=== PATIENT | male | born 1970 | race Caucasian/White ===

== ENCOUNTER → 2018-07-07 09:03 | Outpatient (CLI) | payer OTHER, SELFPAY ==
[2018-07-07 10:06] LABS: Add Manual Diff / Slide Review NO; Basophils Percent Auto 0.6 % (0-2); Eosinophils Percent Auto 2.1 % (2-4); Hemoglobin 15.7 g/dL (13.5-17.5); Lymphocytes Percent Auto 22.8 % (25-40); Mean Corpuscular HGB Conc 34.1 % (30-36); Mean Corpuscular Hemoglobin 29.8 PG (26-34); Mean Corpuscular Volume 87.4 fL (80-100); Monocytes Percent Auto 11.5 % (3-14); Neutrophils Absolute Auto 3800 /uL (1500-7000); Platelet Count 225 X10^3/uL (150-400); Red Blood Cell Count 5.27 X10^6/uL (4.5-5.9)
[2018-07-07 10:15] LABS: BUN Creatinine Ratio 17.3 (6-22); Blood Urea Nitrogen 19 mg/dL (9-20); Calcium 9.3 mg/dL (8.4-10.2); Carbon Dioxide 28 mmol/L (22-32); Chloride 105 mmol/L (98-107); Estimated Glomerular Filt Rate > 60.0 mL/min (>60); Glucose 60 mg/dL (70-100); HEMOLYSIS < 15 (0-50); Sodium 141 mmol/L (137-145)
[2018-07-07 10:34] LABS: Hemoglobin A1C% w Est Avg Glu 5.5 % (4.0-6.0)
[2018-07-07 11:06] LABS: Appearance Urine UA SL CLOUDY; Bilirubin Urine UA NEGATIVE (NEGATIVE); Color Urine UA YELLOW; Glucose Urine UA NEGATIVE (Negative); Ketones Urine UA NEGATIVE (NEGATIVE); Leukocyte Esterase Urine UA NEGATIVE (NEGATIVE); Nitrite Urine UA NEGATIVE (Negative); Occult Blood Urine UA NEGATIVE (Negative); Protein Urine UA NEGATIVE (Negative); Specific Gravity Urine UA >=1.030 (1.000-1.035); Urobilinogen Urine UA 0.2 E.U./dL (0.2)
[2018-07-07 11:26] LABS: Bacteria Urine Moderate (10-30); Culture Indicated Urine Cult Not Indicated; Mucus Urine 2+ (Negative); RBC Urine 0-1/HPF (0-5/HPF); WBC Urine 0-1/HPF (0-5/HPF)
== END ==
PROVIDERS: Visit Provider Orthopaedic Surgery
DX: Z01.818 Encounter for other preprocedural examination (principal)
CPT/HCPCS: 36415; 80048; 81001; 83036; 85025; 93005

== ENCOUNTER 2018-07-23 10:48 | Day surgery (SDC) | payer OTHER, SELFPAY ==
[2018-07-12 14:57] VITALS: BMI 29.9
[2018-07-23] VITALS (11 sets, daily range): BP systolic 99–124; BP diastolic 67–84; PULSE 71–83; RESP 10–16; TEMP 36.2–37.2; O2SAT 92–99; BMI 29.9
--- NOTE | 2018-07-23 06:00 | DI.RAD.S_ITS ---
PROCEDURE: XR KNEE RT 1TO2V INDICATIONS: Postop left knee arthroplasty TECHNIQUE: 2 views of the knee acquired. COMPARISON: None available. FINDINGS: Bones: Patient is status post total knee joint arthroplasty. Hardware components are in expected positions. Visualized bony structures are intact. Soft tissues: Overlying postoperative changes are noted including a joint effusion, surgical drain, and soft tissue and joint space gas. IMPRESSION: 1. Expected postsurgical changes status post right knee arthroplasty. Dictated by: Bunny Pereira M.D. on 07/23/2018 at 10:59 Approved by: Bunny Pereira M.D. on 07/23/2018 at 11:00
[2018-07-23] MEDS: CELECOXIB 200 MG CAPSULE 400 MG PO (12:13)
[2018-07-23] MEDS: LACTATED RINGERS 1,000 ML 42 ML IV ×2 (12:13→14:48)
[2018-07-23] MEDS: ACETAMINOPHEN 325 MG TABLET 975 MG PO (12:15)
[2018-07-23] MEDS: PREGABALIN 75 MG CAPSULE PO (12:15)
[2018-07-23] MEDS: VANCOMYCIN 1,000 MG/200 ML FROZ.PIGGY 200 MG IV (13:45)
[2018-07-23] MEDS: CLINDAMYCIN 900 MG/50 ML PIGGYBACK 50 MG IV (14:20)
[2018-07-23] MEDS: BUPIVACAINE LIPOSOME 266 MG/20 ML VIAL INJ (14:51)
[2018-07-23] MEDS: BUPIVACAINE 0.25% W/ EPI VIAL 50 ML INJ (14:52)
[2018-07-23] MEDS: TRANEXAMIC ACID 1,000 MG VIAL 1000 MG INJ ×2 (14:52→16:10)
[2018-07-23] MEDS: POVIDONE-IODINE 15 ML, SODIUM CHLORIDE 0.9% 250 ML TOP (14:53)
--- NOTE | 2018-07-23 14:53 | PM.PROC.1 ---
Procedures Date/Time Date of procedure: 07/23/18 Time of procedure: 13:56 General Procedure description: Ultrasound guided adductor canal nerve block for post op pain control after left medial uni knee arthroplasty by Dr. Jain. Risk and benefits of procedure discussed with patient. ASA monitoring applied to patient. O2 given via nasal cannula. 2 mg Versed given for procedural sedation. Skin site was prepped with chlorhexidine and allowed to fully dry. Sterile gloves, mask, hat and probe cover were used to maintain sterility. 2% lidocaine and 30ga needle was used to make a small skin wheal at needle insertion site. Under ultrasound guidance, a 21ga 100mm Pajunk needle was directed into the adductor canal near femoral artery and saphenous nerve at the level of mid thigh. Patient reported mild parasthesias that resolved with needle repositioning. After negative aspiration, 20 mL 0.5% ropivicaine and 10mg dexamethasone were injected around saphenous nerve. Patient tolerated procedure well.
--- NOTE | 2018-07-23 14:55 | SUR.OPER ---
Supine on padded OR bed. Pillow under head, arms secured on padded armboards <90 degree abduction. Safety belt across torso. Non-operative leg secured with tape over blanket over lower leg. Operative leg secured in DeMayo/Marcio positioner. Foam padded brace at thigh of operative leg.
--- NOTE | 2018-07-23 17:04 | P.OP_ITS ---
Operative Date/Time/Diagnoses Date of procedure: 07/23/18 Time of procedure: 16:54 Pre-op diagnosis: Left knee medial femoral osteonecrosis, left knee medial compartment arthritis Post-op diagnosis: same Procedure & Clinicians Procedure: left knee diagnostic arthroscopy, left knee medial compartment arthroplasty Same procedure as scheduled: Yes Indications: This is a 47-year-old gentleman with a history of osteonecrosis of his medial femoral condyle an ongoing medial compartment pain is brought the operating room for a medial compartment arthroplasty. He has failed extensive conservative measures and is having pain and mechanical symptoms. Surgeon: Macarena Jain Market Research Coordinator: Milka Nash Anesthesia Type: General Operative Notes Findings: Significant medial compartment arthritic change, diagnostic arthroscopy did not reveal any significant pathology in the patellofemoral joint or lateral compartment. There was softening and an obvious lesion in the medial femoral condyle. Closure Type: primary Specimen(s): none sent Implants & Drains: Size F femur, size 5 tibia, +8 poly Jain and Nephew a Beverly Estimated Blood Loss (mL): 200 Tourniquet time (min): 70 Procedure in detail: The patient was seen in the pre-operative area, where the left knee was identified as the operative site and this was marked with my initials. The patient received pre-operative antibiotics, and was taken to the operating room and placed on the operative table in the supine position. After satisfactory anesthesia, a manager maritime out was performed. A lateral portal was established for diagnostic arthroscopy. The scope was inserted the patellofemoral compartment lateral compartment gutters and notch were checked. There was no significant pathology in any of the compartments except for the medial compartment where there was obvious articular cartilage loss off the medial femoral condyle and softening of the medial femoral condyle. The patient was felt to be an appropriate candidate for medial compartment arthroplasty. The left leg was encircled with a tourniquet about the proximal thigh, and the leg was prepared from the toes to the tourniquet with ChloroPrep in the usual fashion and draped through sterile drapes. The leg was elevated and exsanguinated with Eschmark bandage and the tourniquet inflated to [250] mmHg pressure. The knee was approached through an approximately 10 cm incision medial parapatellar incision and carried into the knee through a medial parapatellar arthrotomy. The osteophytes and medial meniscus were removed. Next, a small amount of the anterior tibial boss was carefully resected with a saw. The guide was placed along the medial joint line. It was meticulously adjusted to make sure there was appropriate slope that it was at the joint line and then was pinned to the tibia and the femur. The medial femoral condylar cut was made in extension. The tibial cut was made in flexion. The bone was meticulously irrigated with normal saline. In very dense bone and we actually opened the 2nd saw in order to adequately resect his bone. It was irrigated during bone resections. Small amount of additional meniscus was resected posterior capsule was checked and injected with Marcaine. The extension gap was carefully checked with an 8 mm gap inspector open die was noted that it fit well. A small number of additional osteophytes were resected. The tibia was a size [5]. It was noted that it fit without overhang. The femur was sized and it was noted to be a [F]. The appropriate cutting guide was pinned into place and carefully positioned on the femoral condyle. Drill holes were placed. The tibia was pinned into place and drill holes were made. Trial reduction with the appropriate poly showed full range of motion and good stability at 0, 45. and 90? with normal tracking of the components without edge loading. The bone was meticulously irrigated and dried. Additional Marcaine was injected. The posterior capsule was injected with 0.25% Marcaine mixed with 20 ml Exparel for post-operative pain control. The remainder of this mixture was injected into the capsule and subcutaneous tissues during cement curing. Range of motion was [0-130], with good stability throughout the range. The trials were then remove. The cement was as applied and the final prosthetics placed. Excess cement was removed during and after cement curing. A brief medial compartment Betadine soak was performed. After confirming there was no extruded cement posteriorly, the final tibial insert was placed. The knee was copiously irrigated and the tourniquet deflated. Hemostasis was obtained. The capsule was closed with interrupted Vicryl. The subcutaneous tissue was closed with barbed sutures. The skin with a running 3-0 V-Lock suture and surgical glue. The portal was closed with a single nylon stitch. An Aquacel Ag dressing was applied and the patient was taken to recovery having tolerated the procedure well. Complications: none Condition: stable Disposition: same day surgery Plan for aftercare: Weightbearing as tolerated on the left lower extremity. Cane as needed. Work on progressive range of motion outpatient physical therapy and follow up in about 10 days.
[2018-07-23] MEDS: fentaNYL 100 MCG/2 ML INJ 50 MCG IV (17:06)
[2018-07-23] MEDS: OXYCODONE/ACETAMINOPHEN 5/325 TABLET 1 TAB PO (17:44)
--- NOTE | 2018-07-23 18:30 | SUR.PHASEII ---
VERBAL ORDER RECEIVED FROM DR. WONG FOR NO XRAY OF KNEE NEEDED IN RECOVERY ROOM OR PHASE II.
== END 2018-07-23 18:15 | disposition home or self-care (01) ==
PROVIDERS: Visit Provider Orthopaedic Surgery
PROC: (CPT 27446; principal; 2018-07-23 13:45)
DX: M17.12 Unilateral primary osteoarthritis, left knee (principal); M87.9 Osteonecrosis, unspecified; G89.18 Other acute postprocedural pain; G47.30 Sleep apnea, unspecified; F31.81 Bipolar II disorder; Z72.0 Tobacco use
CPT/HCPCS: 27446; 64447; 64450; 73560; C1776; C9290; J1100; J2250; J2405; J2704; J2795; J3010; J3370

== ENCOUNTER 2019-06-07 06:01 | Day surgery (SDC) | payer OTHER, SELFPAY ==
[2019-06-03 13:44] VITALS: BMI 30.1
[2019-06-07] VITALS (9 sets, daily range): BP systolic 93–131; BP diastolic 60–84; PULSE 59–78; RESP 8–14; TEMP 35.9–36.3; O2SAT 96–98; BMI 28.8
--- NOTE | 2019-06-07 06:36 | DI.RAD.S_ITS ---
PROCEDURE: XR KNEE RT 1TO2V INDICATIONS: medial uni, right knee TECHNIQUE: 3 view(s) of the knee acquired. COMPARISON: [facility], CR, XR KNEE ARTHRITIC SERIES BI, 03/09/2019, 8:04. [facility], CR, XR KNEE RT 1TO2V, 07/23/2018, 10:28. FINDINGS: Bones: Patient is status post knee joint arthroplasty. Hardware components are in expected positions. Visualized bony structures are intact. Soft tissues: Overlying postoperative changes are noted. IMPRESSION: Expected appearance of right knee medial unicondylar arthroplasty. Dictated by: Miller Valdez [facility] Interpreted: Bindu Jacques MD on 06/07/2019 at 17:47 Approved by: Bindu Jacques M.D. on 06/07/2019 at 18:38
[2019-06-07] MEDS: LACTATED RINGERS 1,000 ML 42 ML IV ×2 (06:50→09:37)
[2019-06-07] MEDS: VANCOMYCIN 1,000 MG/200 ML PIGGYBACK 200 MG IV (06:56)
[2019-06-07] MEDS: ACETAMINOPHEN 325 MG TABLET 975 MG PO (07:02)
[2019-06-07] MEDS: PREGABALIN 75 MG CAPSULE PO (07:02)
--- NOTE | 2019-06-07 07:44 | PM.PREOP ---
Pre-operative Note Interval Note History & Physical reviewed/Exam performed by Physician: Yes Changes to H&P: No
--- NOTE | 2019-06-07 07:44 | PM.OP.1 ---
Operative Date/Time/Diagnoses Date of procedure: 06/07/19 Time of procedure: 07:57 Pre-op diagnosis: right knee oa Post-op diagnosis: same Procedure & Clinicians Procedure: Right knee medial compartment arthroplasty Same procedure as scheduled: Yes Indications: The patient has had progressively worsening right knee pain with radiographic changes consistent with arthritis. Non-operative management has failed and the patient has requested medial unicompartmental knee replacement. The risks, benefits and alternatives to surgery were discussed with the patient prior to proceeding. Risks discussed included, but were not limited to, failure to relieve pain, stiffness, infection, nerve damage, deep venous thrombosis, pulmonary embolism, stroke, coma, heart attack, permanent paralysis and , as well as the potential need for eventual revision of the prosthetic. Surgeon: Macarena Jain Physical Sciences Instructor: Ryan Levy Anesthesia Type: General Operative Notes Findings: Right knee medial compartment arthritis, fairly normal quality bone, no significant patellofemoral or lateral compartment arthritis Closure Type: primary Specimen(s): none sent Prosthetic devices, grafts, tissues, transplants, or devices: Jain and Nephew Z [employer] size F femur, size 5 tibia, +8 poly Estimated Blood Loss (mL): 250 Blood products transfused: none Tourniquet time (min): 72 Procedure in detail: The patient was seen in the pre-operative area, where the right knee was identified as the operative site and this was marked with my initials. The patient received pre-operative antibiotics, and was taken to the operating room and placed on the operative table in the supine position. After satisfactory anesthesia, a fish stringer assembler out was performed. The right leg was encircled with a tourniquet about the proximal thigh, and the leg was prepared from the toes to the tourniquet with ChloroPrep in the usual fashion and draped through sterile drapes. The leg was elevated and exsanguinated with Eschmark bandage and the tourniquet inflated to [250] mmHg pressure. The knee was approached through an approximately 10 cm incision medial parapatella incision and carried into the knee through a medial parapatellar arthrotomy. The osteophytes and medial meniscus were removed. Next, a small amount of the anterior tibial boss was carefully resected with a saw. The guide was placed along the medial joint line. It was meticulously adjusted to make sure there was appropriate slope that it was at the joint line and then was pinned to the tibia and the femur. The medial femoral condylar cut was made in extension. The tibial cut was made in flexion. The bone was meticulously irrigated with normal saline. Small amount of additional meniscus was resected posterior capsule was checked and injected with Marcaine. The extension gap was carefully checked with an 8 mm gap sap integration architect was noted that it fit well. A small number of additional osteophytes were resected. The tibia was a size 5. It was noted that it fit without overhang. The femur was sized and it was noted to be a F. The appropriate cutting guide was pinned into place and carefully positioned on the femoral condyle. Drill holes were placed. The tibia was pinned into place and drill holes were made. Trial reduction with the appropriate poly showed full range of motion and good stability at 0, 45. and 90? with normal tracking of the components without edge loading. The bone was meticulously irrigated and dried. Additional Marcaine was injected. The posterior capsule was injected with 0.25% Marcaine mixed with 20 ml Exparel for post-operative pain control. The remainder of this mixture was injected into the capsule and subcutaneous tissues during cement curing. Range of motion was [0-130], with good stability throughout the range. The trials were then remove. The cement was as applied and the final prosthetics placed. Excess cement was removed during and after cement curing. A brief medial compartment Betadine soak was performed. After confirming there was no extruded cement posteriorly, the final tibial insert was placed. The knee was copiously irrigated and the tourniquet deflated. Hemostasis was obtained. The capsule was closed with interrupted vicryl. The subcutaneous tissue was closed with barbed sutures. The skin with a running 3-0 V-Lock suture and surgical glue. An Aquacel Ag dressing was applied and the patient was taken to recovery having tolerated the procedure well. Complications: none Post-operative Condition: stable Disposition: Acute Care Plan for aftercare: The patient will be maintained on a standard medial unicompartmental knee replacement protocol with weight bearing as tolerated. The patient will receive aspirin and sequential compression devices for DVT prophylaxis. The patient will be discharged home when safe for the home environment.
[2019-06-07] MEDS: CEFAZOLIN 2 GM/100 ML FROZ.PIGGY IV (08:05)
[2019-06-07] MEDS: TRANEXAMIC ACID 1,000 MG VIAL 2000 MG INJ ×2 (08:05→09:28)
[2019-06-07] MEDS: BUPIVACAINE LIPOSOME 266 MG/20 ML VIAL INJ (08:29)
[2019-06-07] MEDS: BUPIVACAINE 0.5% W/ EPI (PF) 30 ML VIAL INJ (08:31)
[2019-06-07] MEDS: SODIUM CHLORIDE 0.9% FLUSH 30 ML IV (08:32)
[2019-06-07] MEDS: SODIUM CHLORIDE IRRIG SOLUTION 250 ML, POVIDONE-IODINE SPONGE STICKS 1 APPLIC IRR (09:00)
--- NOTE | 2019-06-07 10:18 | SUR.PHASEI ---
Patient drowsy but responsive to verbal stiimulation. Warm blanket provided. Xray completed. Ice pack in place. Patient rates pain to right knee 1/10. No other needs voiced.
== END 2019-06-07 11:13 | disposition home or self-care (01) ==
PROVIDERS: Visit Provider Orthopaedic Surgery
PROC: (CPT 27446; principal; 2019-06-07 07:45)
DX: M17.11 Unilateral primary osteoarthritis, right knee (principal)
CPT/HCPCS: 27446; 73560; C1776; C9290; J0690; J1100; J2405; J2704; J3010

== ENCOUNTER → 2019-06-13 13:13 | Outpatient (CLI) | payer OTHER, SELFPAY ==
--- NOTE | 2019-06-13 | DI.US.S_ITS ---
PROCEDURE: US PERIPH VENOUS LOW EXTREM RT INDICATIONS: RT KNEE/CALF SWELLING, S/P KNEE SURGERY 06-07-19 TECHNIQUE: Real-time imaging, as well as color and pulse Doppler interrogation, were performed of the lower extremity deep veins from the inguinal ligament to the popliteal fossa. COMPARISON: None. FINDINGS: The common femoral, femoral and popliteal veins are normally compressible, and free of intraluminal thrombus. Color and pulse Doppler demonstrate normal phasic intraluminal flow. There is normal augmentation response to distal compression maneuver. IMPRESSION: No DVT found, right lower extremity. Dictated by: Leonard Orr M.D. on 06/13/2019 at 14:46 Approved by: Leonard Orr M.D. on 06/13/2019 at 14:46
== END ==
PROVIDERS: Visit Provider Orthopaedic Surgery
DX: M25.461 Effusion, right knee (principal); M79.89 Other specified soft tissue disorders; Z98.890 Other specified postprocedural states
CPT/HCPCS: 93971

== ENCOUNTER → 2021-04-12 12:16 | Outpatient (CLI) | payer OTHER, SELFPAY ==
--- NOTE | 2021-04-12 12:17 | DI.MRI.S_ITS ---
PROCEDURE: MR LUMBAR SPINE WO CON INDICATIONS: Spinal stenosis, lumbar region without neurogenic TECHNIQUE: Noncontrast sagittal T1 spin echo and T2 fast echo, sagittal STIR, axial T1 and T2 fast spin echo through the lumbar spine. Axial and oblique coronal T1 spin echo and STIR through the sacrum. In cases with scoliosis, additional coronal T2 fast spin echo may be performed. COMPARISON: None. FINDINGS: Image quality: Excellent. Alignment and Curvature: Minimal L2-3 retrolisthesis Bone Marrow: Degenerative endplate changes noted involving L2-3. Spinal Cord: Conus medullaris terminates at the L1 level. Visualized cord demonstrates normal signal and size. Paraspinous Soft Tissues: No paravertebral masses. T12-L1: Normal appearance. L1-L2: Normal appearance. L2-L3: Moderate disc space narrowing and circumferential disc bulge results in mild central stenosis. Moderate left and mild right foraminal stenosis present. L3-L4: Mild disc space narrowing and circumferential disc bulge without central stenosis. There is moderate left and no right foraminal stenosis present. L4-L5: Mild circumferential disc bulge and hypertrophic facet joints present without central stenosis. Mild right and moderate left foraminal stenosis noted. L5-S1: Disc space narrowing and asymmetric right disc bulge combines with hypertrophic facet joints to result in mild central stenosis. There is moderate right and no left foraminal stenosis IMPRESSION: 1. Multilevel degenerative disc disease and arthropathy results in varying degrees of central and foraminal stenosis including mild central and moderate left foraminal stenosis at L2-3 Approved by: Alverto Mccarthy M.D. on 04/12/2021 at 14:17
== END ==
PROVIDERS: Referring Provider Orthopaedic Surgery; Visit Provider Orthopaedic Surgery
DX: M48.061 Spinal stenosis, lumbar region without neurogenic claudication (principal); M51.36 Other intervertebral disc degeneration, lumbar region; M47.816 Spondylosis without myelopathy or radiculopathy, lumbar region
CPT/HCPCS: 72148

== ENCOUNTER 2023-06-09 13:45 | Emergency (ER) | payer OTHER, SELFPAY ==
[2023-06-09 13:48] VITALS: BP 161/88; PULSE 89; RESP 16; TEMP 36.7; O2SAT 98; BMI 30.2
--- NOTE | 2023-06-09 13:54 | DI.RAD.S_ITS ---
PROCEDURE: XR SACRUM COCCYX MIN 2V INDICATIONS: fall/pain TECHNIQUE: 3 views of the sacrum and coccyx acquired. COMPARISON: None. FINDINGS: Bones: No fractures or dislocations. No suspicious bony lesions. Soft tissues: Visualized bowel gas pattern is normal. No suspicious soft tissue densities. IMPRESSION: No acute fracture. No osseous lesion. If symptoms and/or clinical suspicion for pathology persist, further assessment with repeat, or advanced imaging (e.g., CT, MRI, or bone scan) may be helpful for further assessment. Dictated by: Mau Bolivar M.D. on 06/09/2023 at 15:00 Approved by: Mau Bolivar M.D. on 06/09/2023 at 15:03
--- NOTE | 2023-06-09 13:54 | DI.RAD.S_ITS ---
PROCEDURE: XR LUMBAR SPINE 2-3V INDICATIONS: fall/pain TECHNIQUE: 3 views of the lumbar spine were acquired. COMPARISON: None. FINDINGS: Bones: 5 [id number] vertebrae are present. Multilevel disc space narrowing and endplate osteophyte formation, as well as facet hypertrophy. No vertebral body compression fractures. No suspicious bony lesions. Soft tissues: Overlying bowel gas pattern is normal. No suspicious soft tissue calcifications. IMPRESSION: Multilevel degenerative disc and facet disease. No acute fracture. No osseous lesion. If symptoms and/or clinical suspicion for pathology persist, further assessment with repeat, or advanced imaging (e.g., CT, MRI, or bone scan) may be helpful for further assessment. Dictated by: Mau Bolivar M.D. on 06/09/2023 at 14:59 Approved by: Mau Bolivar M.D. on 06/09/2023 at 14:59
--- NOTE | 2023-06-09 14:45 | ED_ITS ---
HPI - Fall <Addy Rand PA-C - Last Filed: 06/09/23 19:00> General Chief Complaint: Fall Stated Complaint: fell T-7/down 5 stairs/back pain Time Seen by Provider: 06/09/23 14:21 Source: patient Mode of arrival: Ambulatory History of Present Illness HPI Narrative: 52-year-old male presents to the ED with 10 days of lumbar and sacral pain following a fall sustained 10 days ago. Patient states that he had a mechanical fall landing on his bottom on some stairs. Patient states that the lumbar region and sacral and coccyx regions are extremely painful. Pain is aggravated with sitting, standing for long periods of time. Pain is alleviated when walking. Patient has recently been on a long car trip with extended periods of sitting that have exacerbated his symptoms. Patient has been taking Tylenol and ibuprofen with some relief. Denies numbness, tingling, weakness, urinary hesitancy, urinary incontinence, bowel incontinence. Related Data Home Medications Medication Instructions Recorded Confirmed acetaminophen 325 mg capsule 650 mg PO Q4H PRN pain 07/12/18 06/03/19 (Tylenol) azelastine 137 mcg (0.1 %) nasal 1 spray intranasal DAILY 07/12/18 06/03/19 spray aerosol cetirizine 10 mg tablet 10 mg PO DAILY 07/12/18 06/07/19 diclofenac sodium 1 % topical gel 4 g topical QID 07/12/18 06/03/19 lamotrigine 100 mg tablet 150 mg PO DAILY Mood stability 07/12/18 06/07/19 ranitidine HCl 150 mg capsule 150 mg PO DAILY 07/12/18 06/07/19 Previous Rx's Medication Instructions Recorded tramadol 50 mg tablet 50 mg PO Q6H PRN pain #20 tabs 07/23/18 aspirin 81 mg tablet,delayed 81 mg PO BID #60 tabs 06/07/19 release oxycodone 5 mg capsule 5 mg PO Q6H PRN pain #20 caps 06/07/19 Allergies Allergy/AdvReac Type Severity Reaction Status Date / Time amoxicillin [From Augmentin] Allergy Severe Rash Verified 06/07/19 07:06 clavulanic acid Allergy Severe Rash Verified 06/07/19 07:06 [From Augmentin] Opioids - Morphine Analogues Allergy Severe Hallucinati Verified 06/07/19 07:06 ng sulfamethoxazole Allergy Severe Rash Verified 06/07/19 07:06 [From ] trimethoprim [From ] Allergy Severe Rash Verified 06/07/19 07:06 Review of Systems <Addy Rand PA-C - Last Filed: 06/09/23 19:00> Constitutional Constitutional: Denies chills, Denies fatigue, Denies fever(s), Denies frequent falls, Denies lethargy and Denies weakness Eyes Eyes: Denies change in vision, Denies eye discharge, Denies irritation and Denies loss of vision ENT Ears, Nose, Mouth, and Throat: Denies change in voice, Denies dizziness, Denies neck pain, Denies sore throat and Denies throat swelling Cardiovascular Cardiovascular: Denies chest pain, Denies irregular heart rhythm, Denies lightheadedness, Denies palpitations, Denies dyspnea, Denies dyspnea on exertion and Denies orthopnea Respiratory Respiratory: Denies cough, Denies dyspnea, Denies dyspnea on exertion and Denies wheezing Gastrointestinal Gastrointestinal: Denies abdominal pain, Denies change in bowel habits, Denies diarrhea, Denies nausea and Denies vomiting Musculoskeletal Musculoskeletal: Reports back pain, Denies neck pain and Denies numbness Integumentary/Breasts Skin/Breast: Denies pruritus, Denies erythema, Denies rash and Denies wounds Neurologic Neurologic: Denies behavioral changes, Denies confusion, Denies dizziness, Denies frequent falls, Denies loss of vision, Denies numbness and Denies weakness Psychiatric Psychiatric: Denies anxiety, Denies behavioral changes, Denies confusion, Denies depression, Denies homicidal ideation and Denies suicidal ideation Endocrine Endocrine: Denies fatigue, Denies flushing and Denies palpitations Hematologic/Lymphatic Hematologic/Lymphatic: Denies easy bruising Allergic/Immunologic Allergic/Immunologic: Denies urticaria, Denies throat swelling and Denies wheezing Patient History <Addy Rand PA-C - Last Filed: 06/09/23 19:00> Medical History Sleep apnea Phlebitis Osteoarthritis Depression Varicose veins of both lower extremities [place]-Schlatter's disease Bipolar disorder Left orbit fracture Eczema Former smoker Plantar fasciitis of left foot (~12/2012) Surgical History Hx of nasal septoplasty S/P left unicompartmental knee replacement (07/23/18) Hx of meniscectomy of right knee Status post scrotal varicocelectomy (~1996) Hx of rhinoplasty (~2010) H/O: vasectomy (~2010) Social History household members: spouse and children Smoking Status: Current every day smoker alcohol intake: current Smoking Status: Current every day smoker tobacco type: smokeless tobacco alcohol intake frequency: holidays/special occasions only Substance Use Type: does not use Exam <Addy Rand PA-C - Last Filed: 06/09/23 19:00> Narrative Exam Narrative: Const General:?cooperative, healthy appearing and comfortable HENMT Head:?normal to inspection Ears:?hearing grossly normal bilaterally Nose:?external nose normal Face and sinus:?normal facial exam and sinuses nontender Mouth:?oral mucosae normal Throat:?posterior oropharynx normal Eyes General:?appearance normal, both eyes and all related structures Neck Neck:?normal visual inspection and no lymphadenopathy noted Resp Effort & Inspection:?normal respiratory effort Auscultation:?clear to auscultation bilaterally Cardio Rate:?regular rate Rhythm:?regular rhythm Musculoskeletal No midline tenderness to palpation. No paraspinal tenderness to palpation. There is full range of motion. Strength and sensation is intact. Patient is neurovascularly intact. Neuro General:?patient alert, patient awake and patient oriented x3 Initial Vital Signs Initial Vital Signs: Vital Signs Temperature 98.1 F 06/09/23 13:48 Pulse Rate 89 06/09/23 13:48 Respiratory Rate 16 06/09/23 13:48 Blood Pressure 161/88 H 06/09/23 13:48 Pulse Oximetry 98 06/09/23 13:48 Oxygen Delivery Method Room Air 06/09/23 13:48 <Amy Kam DO - Last Filed: 06/19/23 07:31> Initial Vital Signs Initial Vital Signs: Vital Signs Temperature 98.1 F 06/09/23 13:48 Pulse Rate 89 06/09/23 13:48 Respiratory Rate 16 06/09/23 13:48 Blood Pressure 161/88 H 06/09/23 13:48 Pulse Oximetry 98 06/09/23 13:48 Oxygen Delivery Method Room Air 06/09/23 13:48 Course <Addy Rand PA-C - Last Filed: 06/09/23 19:00> Orders Ordered: Discontinued Medications Cyclobenzaprine HCl (Cyclobenzaprine 10 Mg Tablet) 10 mg PO NOW ONE Stop: 06/09/23 14:55 Last Admin: 06/09/23 15:04 Dose: 10 mg Documented By: ANGELA Ketorolac Tromethamine (Ketorolac 30 Mg/Ml Vial) 30 mg IM NOW ONE Stop: 06/09/23 14:55 Last Admin: 06/09/23 15:04 Dose: 30 mg Documented By: ANGELA Vital Signs Vital signs: Vital Signs - 8 hr 06/09/23 13:48 06/09/23 15:25 Temperature 98.1 F Pulse Rate 89 75 Respiratory Rate 16 20 Blood Pressure 161/88 H 157/88 H Pulse Oximetry 98 98 Oxygen Delivery Method Room Air Room Air <Amy Kam DO - Last Filed: 06/19/23 07:31> Orders Ordered: Discontinued Medications Cyclobenzaprine HCl (Cyclobenzaprine 10 Mg Tablet) 10 mg PO NOW ONE Stop: 06/09/23 14:55 Last Admin: 06/09/23 15:04 Dose: 10 mg Documented By: ANGELA Ketorolac Tromethamine (Ketorolac 30 Mg/Ml Vial) 30 mg IM NOW ONE Stop: 06/09/23 14:55 Last Admin: 06/09/23 15:04 Dose: 30 mg Documented By: ANGELA Vital Signs Vital signs: Vital Signs - 8 hr 06/09/23 13:48 06/09/23 15:25 Temperature 98.1 F Pulse Rate 89 75 Respiratory Rate 16 20 Blood Pressure 161/88 H 157/88 H Pulse Oximetry 98 98 Oxygen Delivery Method Room Air Room Air MDM - Fall <Addy Rand PA-C - Last Filed: 06/09/23 19:00> MDM Narrative Medical decision making narrative: 52-year-old male presents to the ED with 10 days of lumbar and sacral pain following a fall sustained 10 days ago. Concern for fracture/dislocation versus musculoskeletal sprain/strain versus other. Obtained lumbar, sacrum and coccyx x-rays which show no acute findings other than arthritis and degenerative changes. Patient was given Toradol and Flexeril in the ED with good relief. Recommend continuing Tylenol and ibuprofen at home. Also prescribed Flexeril. Recommend follow-up with PCP as soon as possible for further evaluation. ED return precautions discussed with patient. Patient verbalized understanding. Medical records reviewed: Yes Discharge Plan Departure Patient Disposition: Home Clinical Impression: Lower back pain Qualifiers: Chronicity: acute Back pain laterality: unspecified Sciatica presence: without sciatica Qualified Code(s): M54.50 - Low back pain, unspecified Instructions: Low Back Pain Activity Restrictions/Additional Instructions: You were evaluated in the ED today for lower back pain. Your x-rays did not show any fractures or dislocations. Your symptoms are likely due to a musculoskeletal sprain/strain. Your symptoms today improved with Toradol and Flexeril. You are being prescribed Flexeril take as needed for pain. You may also continue the Tylenol and ibuprofen. Please follow-up with your PCP as soon as possible. Return to the ED if you have worsening symptoms, numbness, tingling, weakness, urinary difficulties. Prescriptions: No Action cetirizine 10 mg Tablet 10 mg PO DAILY diclofenac sodium 1 % Gel 4 g TOPICAL QID ranitidine HCl 150 mg Capsule 150 mg PO DAILY azelastine 137 mcg (0.1 %) Aerosol,[place] 1 spray INTRANASAL DAILY lamotrigine 100 mg Tablet 150 mg PO DAILY acetaminophen [Tylenol] 325 mg Capsule 650 mg PO Q4H PRN (Reason: pain) tramadol 50 mg tablet 50 mg PO Q6H PRN (Reason: pain) Qty: 20 0RF oxycodone 5 mg capsule 5 mg PO Q6H PRN (Reason: pain) Qty: 20 0RF aspirin 81 mg tablet,delayed release (DR/EC) 81 mg PO BID Qty: 60 0RF Stand Alone Forms: Patient Portal/API ED Sign-out <Amy Kam DO - Last Filed: 06/19/23 07:31> Cosign ED Attending Neisha Attestation: I was immediately available in the department for consultation.
[2023-06-09] MEDS: CYCLOBENZAPRINE 10 MG TABLET PO (15:04)
[2023-06-09] MEDS: KETOROLAC 30 MG/ML VIAL IM (15:04)
[2023-06-09 15:25] VITALS: BP 157/88; PULSE 75; RESP 20; O2SAT 98
== END 2023-06-09 15:33 | disposition home or self-care (01) ==
PROVIDERS: Emergency Provider Student in an Organized Health Care Education/Training Program
DX: M54.50 Low back pain, unspecified (principal); Z87.891 Personal history of nicotine dependence
CPT/HCPCS: 72100; 72220; 96372; 99283; J1885

== ENCOUNTER 2023-06-19 11:41 | Emergency (ER) | payer OTHER, SELFPAY ==
[2023-06-19 11:45] VITALS: BP 120/73; PULSE 94; RESP 18; TEMP 36.2; O2SAT 99; BMI 30.9
--- NOTE | 2023-06-19 14:11 | ED.BACK ---
HPI - Back Pain/Injury General Chief Complaint: Back Pain/Injury Stated Complaint: upper back pain Time Seen by Provider: 06/19/23 13:49 Source: patient History of Present Illness HPI Narrative: 52-year-old male with history of lower back pain, on lamotrigine for mood who presents with complaint of upper thoracic back pain. Patient states he was bent over picking up a pallet taya. He felt a twinge on the left upper thoracic area through his scapula has increased and has extended up towards his neck. He does have little bit of a headache. He states he is had low back issues in the past but does not typically have thoracic issues. Denies any numbness, tingling or weakness. No syncope. He notes he is most comfortable lying completely flat. No fevers cold cough or congestion symptoms. No loss of bowel or bladder control. Tried Tylenol and ibuprofen at home without improvement yesterday. Had a dose of Flexeril this morning at 8:15 a.m. which he states was minimally helpful. He does take aspirin daily. States he does not tolerate certain antibiotics including Augmentin, Bactrim and that opiates can make him hallucinate or be very mean. Patient states he does smoke tobacco, occasional alcohol, no recreational drugs. Related Data Home Medications Medication Instructions Recorded Confirmed acetaminophen 325 mg capsule 650 mg PO Q4H PRN pain 07/12/18 06/03/19 (Tylenol) azelastine 137 mcg (0.1 %) nasal 1 spray intranasal DAILY 07/12/18 06/03/19 spray aerosol cetirizine 10 mg tablet 10 mg PO DAILY 07/12/18 06/07/19 diclofenac sodium 1 % topical gel 4 g topical QID 07/12/18 06/03/19 lamotrigine 100 mg tablet 150 mg PO DAILY Mood stability 07/12/18 06/07/19 ranitidine HCl 150 mg capsule 150 mg PO DAILY 07/12/18 06/07/19 Previous Rx's Medication Instructions Recorded tramadol 50 mg tablet 50 mg PO Q6H PRN pain #20 tabs 07/23/18 aspirin 81 mg tablet,delayed 81 mg PO BID #60 tabs 06/07/19 release oxycodone 5 mg capsule 5 mg PO Q6H PRN pain #20 caps 06/07/19 diazepam 5 mg tablet (Valium) 5 mg PO TID PRN muscle spasm #10 06/19/23 tabs lidocaine 5 % topical patch 1 patch topical Q24H PRN pain #15 06/19/23 ea meloxicam 7.5 mg tablet 7.5 mg PO BID PRN pain #20 tabs 06/19/23 Allergies Allergy/AdvReac Type Severity Reaction Status Date / Time amoxicillin [From Augmentin] Allergy Severe Rash Verified 06/07/19 07:06 clavulanic acid Allergy Severe Rash Verified 06/07/19 07:06 [From Augmentin] Opioids - Morphine Analogues Allergy Severe Hallucinati Verified 06/07/19 07:06 ng sulfamethoxazole Allergy Severe Rash Verified 06/07/19 07:06 [From Septra] trimethoprim [From Septra] Allergy Severe Rash Verified 06/07/19 07:06 Review of Systems Review of Systems ROS Unobtainable: All systems reviewed & are unremarkable except as noted in HPI and below Patient History Medical History Sleep apnea Phlebitis Osteoarthritis Depression Varicose veins of both lower extremities [place]-Schlatter's disease Bipolar disorder Left orbit fracture Eczema Former smoker Plantar fasciitis of left foot (~12/2012) Surgical History Hx of nasal septoplasty S/P left unicompartmental knee replacement (07/23/18) Hx of meniscectomy of right knee Status post scrotal varicocelectomy (~1996) Hx of rhinoplasty (~2010) H/O: vasectomy (~2010) Social History household members: spouse and children Smoking Status: Current every day smoker alcohol intake: current Smoking Status: Current every day smoker tobacco type: smokeless tobacco alcohol intake frequency: holidays/special occasions only Substance Use Type: does not use Exam Narrative Exam Narrative: GENERAL: Alert and oriented x three, male in moderate distress. HEENT: Head normocephalic, atraumatic, EOMI, pupils reactive, face symmetric, moist mucous membranes NECK: Supple, full range of motion CARDIOVASCULAR: Regular rate and rhythm without murmurs, rubs or gallops. RESPIRATORY: Breath sounds equal bilaterally, no wheezes rales or rhonchi. ABDOMEN: Soft, nontender. Normoactive bowel sounds all 4 quadrants. No guarding or rebound, rigidity, no mass : No CVA tenderness BACK: No cervical, thoracic or lumbar vertebral point tenderness. Patient has quite a bit of muscle tightness and thoracic spine and bilateral shoulders. Patient is able to move from lying flat to seated and back but appears uncomfortable. Patient has decreased range of motion. Patient's gait is normal. Muscle strength is 5/5 in upper and lower extremities, unix administrator equal bilaterally, 2+ radial pulses bilaterally. Sensation intact bilateral upper extremities. EXTREMITIES: Normal range of motion, no clubbing or edema. Neurovascularly intact NEUROLOGICAL: Cranial nerves II through XII grossly intact. Moving all extremities SKIN: Warm, dry, no petechiae, no rashes or lesions. Initial Vital Signs Initial Vital Signs: Vital Signs Temperature 97.2 F L 06/19/23 11:45 Pulse Rate 94 H 06/19/23 11:45 Respiratory Rate 18 06/19/23 11:45 Blood Pressure 120/73 06/19/23 11:45 Pulse Oximetry 99 06/19/23 11:45 Oxygen Delivery Method Room Air 06/19/23 11:45 Course Orders Ordered: Discontinued Medications Diazepam (Diazepam 5 Mg Tablet) 5 mg PO NOW ONE Stop: 06/19/23 14:34 Last Admin: 06/19/23 14:58 Dose: 5 mg Documented By: Ketorolac Tromethamine (Ketorolac 30 Mg/Ml Vial) 30 mg IM NOW ONE Stop: 06/19/23 14:34 Last Admin: 06/19/23 14:57 Dose: 30 mg Documented By: Vital Signs Vital signs: Vital Signs - 8 hr 06/19/23 11:45 06/19/23 15:51 Temperature 97.2 F L Pulse Rate 94 H 80 Respiratory Rate 18 19 Blood Pressure 120/73 128/76 Pulse Oximetry 99 98 Oxygen Delivery Method Room Air Room Air Oxygen Flow Rate 0 MDM - Back Pain/Injury MDM Narrative Medical decision making narrative: 52-year-old male with thoracic back pain after lifting a Taya from a bending to standing position with thoracic tightness on exam with no bony tenderness. Patient does not have any other red flag symptoms. Not felt to require imaging at this time. Plan for pain management, muscle relaxer and recheck in the next several days with return precautions. Patient states he feels much improved currently. Still has some discomfort but he states he is able to get his shirt on and would like to be discharged home. We will also add lidocaine patch prescription as needed. Patient feels comfortable with discharge reviewed return precautions. Discharge Plan Departure Patient Disposition: Home Clinical Impression: Back pain, thoracic Instructions: DI for Back Strain or Sprain Activity Restrictions/Additional Instructions: Please follow-up in the next week if your symptoms are not significantly improved. You may take Tylenol up to a 1000 mg every 6 hours. You may take meloxicam 1 tablet every 12 hours as needed for pain. Can use lidocaine patch to the affected area. Take muscle relaxer 1 tablet every 8 hours as needed. Prescription sent to [facility] in [place]. Please return for rapidly worsening symptoms, new numbness, tingling or weakness, passing out, new chest pain or shortness of breath, loss of bowel or bladder control or other new or concerning changes. Prescriptions: New meloxicam 7.5 mg tablet 7.5 mg PO BID PRN (Reason: pain) Qty: 20 0RF lidocaine 5 % adhesive patch,medicated 1 patch topical Q24H PRN (Reason: pain) Qty: 15 0RF Rx Instructions: leave on most painful area for up to 12 hrs diazepam [Valium] 5 mg tablet 5 mg PO TID PRN (Reason: muscle spasm) Qty: 10 0RF No Action cetirizine 10 mg Tablet 10 mg PO DAILY diclofenac sodium 1 % Gel 4 g TOPICAL QID ranitidine HCl 150 mg Capsule 150 mg PO DAILY azelastine 137 mcg (0.1 %) Aerosol,[place] 1 spray INTRANASAL DAILY lamotrigine 100 mg Tablet 150 mg PO DAILY acetaminophen [Tylenol] 325 mg Capsule 650 mg PO Q4H PRN (Reason: pain) tramadol 50 mg tablet 50 mg PO Q6H PRN (Reason: pain) Qty: 20 0RF oxycodone 5 mg capsule 5 mg PO Q6H PRN (Reason: pain) Qty: 20 0RF aspirin 81 mg tablet,delayed release (DR/EC) 81 mg PO BID Qty: 60 0RF Referrals: Miscellaneous,Doctor, MD [Primary Care Provider] - Stand Alone Forms: Patient Portal/API
[2023-06-19] MEDS: KETOROLAC 30 MG/ML VIAL IM (14:57)
[2023-06-19] MEDS: diazePAM 5 MG TABLET PO (14:58)
[2023-06-19 15:51] VITALS: BP 128/76; PULSE 80; RESP 19; O2SAT 98
== END 2023-06-19 15:55 | disposition home or self-care (01) ==
PROVIDERS: Emergency Provider Emergency Medicine
DX: M54.6 Pain in thoracic spine (principal); X50.9XXA Other and unspecified overexertion or strenuous movements or postures, initial encounter
CPT/HCPCS: 96372; 99283; J1885

== ENCOUNTER 2025-03-05 13:44 | Emergency (ER) | payer OTHER, SELFPAY ==
[2025-03-05 14:01] VITALS: BP 136/76; PULSE 69; RESP 16; TEMP 36.6; O2SAT 98; BMI 30.9
--- NOTE | 2025-03-05 19:39 | ED_ITS ---
HPI - Extremity Injury (Lower) General Chief Complaint: Extremity Injury, Lower Stated Complaint: Severe and worsening hip pain Time Seen by Provider: 03/05/25 16:34 Source: patient Mode of arrival: Ambulatory History of Present Illness HPI Narrative: Patient is a 54-year-old male with a past medical history of left hip pain, states that this has been ongoing persistent since Thursday, states that he felt a ?shift in his hip and low back, states that he has had pain in his hip prior has seen pain clinic and orthopedic surgery for similar he denies any lower extremity weakness. Denies any bowel or urinary incontinence or retention de nies any red flags for cauda equina. Patient states that he has been having this issue for several months years, states that he is in the process of getting established with a pain management dog Orthopedic, he states that he just needs some medication to help control his pain. Denies any trauma or falls is able to stand bear weight ambulate unassisted here in the emergency department Related Data Home Medications ?Medication ?Instructions ?Recorded ?Confirmed acetaminophen 325 mg capsule 650 mg PO Q4H PRN pain 06/03/19 (Tylenol) azelastine 137 mcg (0.1 %) nasal 1 spray intranasal DA NELLIE 07/12/18 06/03/19 spray cetirizine 10 mg tablet 10 mg PO DAILY 07/12/1805/29 diclofenac sodium 1 % topical gel 4 g topical QID 06/2906/03/19 lamotrigine 100 mg tablet 150 mg PO DAILY Mood stabili ty 07/12/18 06/07/19 ranitidine HCl 150 mg capsule 150 mg PO DAILY 07/12/18 06/07/19 Previous Rx's ?Medication ?Instructions ?Recorded tramadol 50 mg tablet 50 mg PO Q6H PRN pain #20 ta bs 07/23/18 aspirin 81 mg tablet,delayed 81 mg PO BID #60 tabs 04/16 release oxycodone 5 mg capsule 5 mg PO Q6H PRN pain #20 cap s 06/07/19 diazepam 5 mg tablet (Valium) 5 mg PO TID PRN muscle s pasm #10 06/19/23 tabs lidocaine 5 % topical patch 1 patch topical Q24H PRN p ain #15 06/19/23 ea meloxicam 7.5 mg tablet 7.5 mg PO BID PRN pain #20 t abs 06/19/23 methocarbamol 500 mg tablet 500 mg PO TID PRN Pain 5 d ays #15 03/05/25 tabs methylprednisolone 4 mg tablets in See Rx Instructions PO .COMPLEX 03/05/25 a dose pack (Medrol (Vazquez)) #21 ea Allergies Allergy/AdvReac Type Severity Reaction Status Date / Time amoxicillin (From Augmentin) Allergy Severe Rash Verified 03/05/25 14:03 clavulanic acid (From Allergy Severe Rash Verified 03/05/25 14:03 Augmentin) Opioids - Morphine Analogues Allergy Severe Hallucinati Verified 03/05/25 14:03 ng sulfamethoxazole (From Allergy Severe Rash Verified 03/05/25 14:03 Septra) trimethoprim (From Septra) Allergy Severe Rash Verified 03/05/25 14:03 Review of Systems Review of Systems Narrative: General: Denies fever, chills, weight loss HEENT: Denies headache, eye drainage, eye irritation, head trauma, sore throat, voice change Cardiovascular: Denies any chest pain, palpitations, tachycardia Respiratory: Denies any shortness of breath, cough, wheeze, stridor GI/: Denies any abdominal pain, nausea, vomiting, diarrhea, bright red blood per rectum, melanotic stools, urinary frequency, urinary retention, dysuria, hematuria MSK: Positive left hip pain Skin: Denies any rashes, lesions, discoloration Neuro: Denies any headache, lightheadedness, dizziness, fainting, weakness Psych: Denies SI/HI Patient History Medical History Sleep apnea Phlebitis Osteoarthritis Depression Varicose veins of both lower extremities Herber-Schlatter's disease Bipolar disorder Left orbit fracture Eczema Former smoker Plantar fasciitis of left foot (~12/2012) Surgical History Hx of nasal septoplasty S/P left unicompartmental knee replacement (07/23/18) Hx of meniscectomy of right knee Status post scrotal varicocelectomy (~1996) Hx of rhinoplasty (~2010) H/O: vasectomy (~2010) Social History household members: spouse and children alcohol intake: current tobacco type: smokeless tobacco alcohol intake frequency: holidays/special occasions only Exam Narrative Exam Narrative: General: Cooperative, well-developed, not in acute distress HEENT: Normocephalic, atraumatic, PERRLA, normal sclera, eyelids normal Neck: Active full range of motion, atraumatic Chest: Normal to inspection, negative crepitus, no overlying erythema ecchymosis Respiratory: Normal respiratory effort, not in acute respiratory distress, clear to auscultation bilaterally negative cough, wheeze, tachypnea, rhonchi, rales Cardiology: Regular rate rhythm negative gallop, murmur, rubs GI/: No tenderness to palpation, soft, non rigid, normal to inspection, exam deferred MSK: Full active range of motion in all 4 extremities, atraumatic, no tenderness to palpation of any bony prominences, patient able to stand bear weight ambulate unassisted. He is neurovascularly intact to bilateral lower extremities Skin: No rashes or lesions noted Neuro: Alert awake oriented x3, moves all 4 extremities spontaneously, cranial nerves intact, able to answer all questions appropriately follows commands appropriately Psych: Cooperative, negative suicidal or homicidal ideations Initial Vital Signs Initial Vital Signs: Vital Signs Temperature 98 F 03/05/25 14:01 Pulse Rate 69 03/05/25 14:01 Respiratory Rate 16 03/05/25 14:01 Blood Pressure 136/76 03/05/25 14:01 Pulse Oximetry 98 03/05/25 14:01 Oxygen Delivery Method Room Air 03/05/25 14:01 Course Vital Signs Vital signs: Vital Signs - 8 hr 03/05/25 14:01 Temperature 98 F Pulse Rate 69 Respiratory Rate 16 Blood Pressure 136/76 Pulse Oximetry 98 Oxygen Delivery Method Room Air MDM - Extremity Injury (Lower) MDM Narrative Medical decision making narrative: Patient is a 54-year-old male history of chronic left hip pain currently in the process of seeing pain management as well as Orthopedic surgery comes into the ED from home for evaluation of pain to his left hip. He states that he has been having these issues for ?a long time denies any trauma fall states this happened when he walked up some stairs. He is able to stand bear weight ambulate unassisted here in the emergency department. He has neurovascularly intact lower extremities. Patient will be given symptomatic treatment instructed follow up with the primary care in outpatient setting patient verbalized understanding of this and agrees to being discharged home with outpatient follow up Discharge Plan Departure Patient Disposition: Home Clinical Impression: Acute pain of left hip Activity Restrictions/Additional Instructions: Please follow up with your scheduled doctors for continued evaluation treatment of your left hip pain Please read the discharge instructions sheet carefully and bring all papers to all doctor follow-up visits, as it may contain information that your doctor may want to see. Disease processes change and evolve, if your symptoms worsen or if you develop any new symptoms that are concerning to you please return for evaluation. Your evaluation today does not show any evidence of any life- threatening/serious illnesses requiring admission to the hospital or surgery. Please follow-up with your doctor for re-evaluation in approximately 1 day. Seek immediate medical attention for any worrisome symptoms. *If you do not have a primary care provider please contact the [facility] Resource line at [phone]. They will ask some questions about your medical history and help get you set up with a doctor in the community. Prescriptions: New methocarbamol 500 mg tablet 500 mg PO TID PRN (Reason: Pain) 5 Days Qty: 15 0RF methylprednisolone [Medrol (Vazquez)] 4 mg tablets,dose pack See Rx Instructions .ROUTE .COMPLEX Qty: 21 0RF Rx Instructions: for 6 days No Action cetirizine 10 mg Tablet 10 mg PO DAILY diclofenac sodium 1 % Gel 4 g TOPICAL QID ranitidine HCl 150 mg Capsule 150 mg PO DAILY azelastine 137 mcg (0.1 %) Aerosol,[place] 1 spray INTRANASAL DAILY lamotrigine 100 mg Tablet 150 mg PO DAILY acetaminophen [Tylenol] 325 mg Capsule 650 mg PO Q4H PRN (Reason: pain) tramadol 50 mg tablet 50 mg PO Q6H PRN (Reason: pain) Qty: 20 0RF oxycodone 5 mg capsule 5 mg PO Q6H PRN (Reason: pain) Qty: 20 0RF aspirin 81 mg tablet,delayed release (DR/EC) 81 mg PO BID Qty: 60 0RF meloxicam 7.5 mg tablet 7.5 mg PO BID PRN (Reason: pain) Qty: 20 0RF lidocaine 5 % adhesive patch,medicated 1 patch topical Q24H PRN (Reason: pain) Qty: 15 0RF Rx Instructions: leave on most painful area for up to 12 hrs diazepam [Valium] 5 mg tablet 5 mg PO TID PRN (Reason: muscle spasm) Qty: 10 0RF Referrals: Miscellaneous,Doctor, MD [Primary Care Provider, Medical] Stand Alone Forms: Patient Portal/API
[2025-03-05] MEDS: KETOROLAC 30 MG/ML VIAL 15 MG IM (19:57)
== END 2025-03-05 20:11 | disposition home or self-care (01) ==
PROVIDERS: Emergency Provider Student in an Organized Health Care Education/Training Program
DX: M25.552 Pain in left hip (principal)
CPT/HCPCS: 96372; 99283; J1100; J1885

== ENCOUNTER 2025-03-16 22:01 | Emergency (ER) | payer OTHER, SELFPAY ==
[2025-03-16 22:16] VITALS: BP 134/82; PULSE 107; RESP 18; TEMP 37.1; O2SAT 98; BMI 30.9
--- NOTE | 2025-03-16 22:21 | DI.RAD.S_ITS ---
PROCEDURE: XR HIP W PEL IF DONE LT 2V INDICATIONS: hip pain TECHNIQUE: AP pelvis with lateral view(s) of the left hip(s). COMPARISON: None. FINDINGS: Bones: No fractures or dislocations. Pelvic ring appears intact. No evidence of avascular necrosis of femoral heads. No suspicious bony lesions. Soft tissues: The visualized bowel gas pattern is normal. No suspicious soft tissue calcifications. IMPRESSION: No acute left hip fracture or dislocation. No evidence of avascular necrosis. Dictated by: Osmany Jasso M.D. on 03/16/2025 at 23:03 Approved by: Osmany Jasso M.D. on 03/16/2025 at 23:03
[2025-03-17 01:58] VITALS: PULSE 81; O2SAT 97
[2025-03-17 01:59] VITALS: BP 169/84
--- NOTE | 2025-03-17 02:08 | ED.LOWEXIN ---
HPI - Extremity Injury (Lower) General Chief Complaint: Extremity Injury, Lower Stated Complaint: Lt side hip pain/dislocation? Time Seen by Provider: 03/17/25 02:02 Source: patient Mode of arrival: Ambulatory History of Present Illness HPI Narrative: 54-year-old male with ongoing left hip pain, was descending a ladder 2 weeks ago, twisted as he caught his foot in a wrung, has had increasing left hip pain since that time, popping sensation left low back.. Seen here a few days ago had Percocet prescription and Robaxin prescription. Still having pain. No incontinence of urine or stool. Related Data Home Medications ?Medication ?Instructions ?Recorded ?Confirmed acetaminophen 325 mg capsule 650 mg PO Q4H PRN pain 07/12/18 06/03/19 (Tylenol) azelastine 137 mcg (0.1 %) nasal 1 spray intranasal DAILY 07/12/18 06/03/19 spray cetirizine 10 mg tablet 10 mg PO DAILY 07/12/18 06/07/19 diclofenac sodium 1 % topical gel 4 g topical QID 07/12/18 06/03/19 lamotrigine 100 mg tablet 150 mg PO DAILY Mood stability 07/12/18 06/07/19 ranitidine HCl 150 mg capsule 150 mg PO DAILY 07/12/18 06/07/19 Previous Rx's ?Medication ?Instructions ?Recorded tramadol 50 mg tablet 50 mg PO Q6H PRN pain #20 tabs 07/23/18 aspirin 81 mg tablet,delayed 81 mg PO BID #60 tabs 06/07/19 release oxycodone 5 mg capsule 5 mg PO Q6H PRN pain #20 caps 06/07/19 diazepam 5 mg tablet (Valium) 5 mg PO TID PRN muscle spasm #10 06/19/23 tabs lidocaine 5 % topical patch 1 patch topical Q24H PRN pain #15 06/19/23 ea meloxicam 7.5 mg tablet 7.5 mg PO BID PRN pain #20 tabs 06/19/23 methylprednisolone 4 mg tablets in See Rx Instructions PO .COMPLEX 03/05/25 a dose pack (Medrol (Vazquez)) #21 ea cyclobenzaprine 10 mg tablet 10 mg PO TID #14 tabs 03/17/25 oxycodone-acetaminophen 5 mg-325 1 tab PO Q6H PRN pain #10 tabs 03/17/25 mg tablet Allergies Allergy/AdvReac Type Severity Reaction Status Date / Time amoxicillin (From Augmentin) Allergy Severe Rash Verified 03/05/25 14:03 clavulanic acid (From Allergy Severe Rash Verified 03/05/25 14:03 Augmentin) Opioids - Morphine Analogues Allergy Severe Hallucinati Verified 03/05/25 14:03 ng sulfamethoxazole (From Allergy Severe Rash Verified 03/05/25 14:03 Septra) trimethoprim (From Septra) Allergy Severe Rash Verified 03/05/25 14:03 Patient History Medical History Sleep apnea Phlebitis Osteoarthritis Depression Varicose veins of both lower extremities Herber-Schlatter's disease Bipolar disorder Left orbit fracture Eczema Former smoker Plantar fasciitis of left foot (~12/2012) Surgical History Hx of nasal septoplasty S/P left unicompartmental knee replacement (07/23/18) Hx of meniscectomy of right knee Status post scrotal varicocelectomy (~1996) Hx of rhinoplasty (~2010) H/O: vasectomy (~2010) Social History household members: spouse and children Smoking Status: Never smoker alcohol intake: current Smoking Status: Never smoker tobacco type: smokeless tobacco alcohol intake frequency: holidays/special occasions only Exam Narrative Exam Narrative: GENERAL: Well-developed patient, in mild distress. HEAD: Atraumatic. Normocephalic. EYES: Pupils equal round and reactive. Extraocular motions intact. No scleral icterus. No injection or drainage. ENT: Nose without bleeding, purulent drainage. Throat without erythema, tonsillar hypertrophy or exudate. Airway patent. NECK: Trachea midline. Non tender CARDIOVASCULAR: Regular rate and rhythm without murmurs, gallops, or rubs. RESPIRATORY: Clear to auscultation. Breath sounds equal bilaterally. No wheezes, rales, or rhonchi. GASTROINTESTINAL: Abdomen soft, non-tender, nondistended. EXTREMITIES: No gross limb length discrepancy. No tenderness anterior trochanteric region left hip. No tenderness lumbar or SI left side, no skin changes or vesicles or zoster like rash. BACK: Nontender without deformity or crepitance. No flank tenderness. NEURO: AOx3. Motor functions grossly nonfocal. SKIN: No rash or erythema of visible areas Initial Vital Signs Initial Vital Signs: Vital Signs Temperature 98.7 F 03/16/25 22:16 Pulse Rate 107 H 03/16/25 22:16 Respiratory Rate 18 03/16/25 22:16 Blood Pressure 134/82 03/16/25 22:16 Pulse Oximetry 98 03/16/25 22:16 Oxygen Delivery Method Room Air 03/16/25 22:16 Course Orders Ordered: ED Orders 03/16/25 22:21 XR hip w pel LT 2V Stat Discontinued Medications Cyclobenzaprine HCl (Cyclobenzaprine 10 Mg Tablet) 10 mg PO NOW ONE Stop: 03/17/25 02:44 Last Admin: 03/17/25 02:51 Dose: 10 mg Documented By: EMMETT Cyclobenzaprine HCl (Cyclobenzaprine 10 Mg Prepack) 1 bottle MISC DIRECTED ONE Stop: 03/17/25 03:35 Last Admin: 03/17/25 04:02 Dose: 1 bottle Documented By: EMMETT Hydromorphone HCl (Hydromorphone 1 Mg/Ml Syringe) 1 mg IM NOW ONE Stop: 03/17/25 02:44 Last Admin: 03/17/25 02:52 Dose: 1 mg Documented By: EMMETT Ondansetron HCl (Ondansetron 4 Mg Odt) 4 mg SL NOW ONE Stop: 03/17/25 02:44 Last Admin: 03/17/25 02:51 Dose: 4 mg Documented By: EMMETT Oxycodone/Acetaminophen (Oxycodone/Apap 5/325 Prepack) 1 bottle MISC DIRECTED ONE Stop: 03/17/25 03:35 Last Admin: 03/17/25 04:02 Dose: 1 bottle Documented By: EMMETT Vital Signs Vital signs: Vital Signs - 8 hr 03/16/25 22:16 03/17/25 01:58 03/17/25 01:59 Temperature 98.7 F Pulse Rate 107 H 81 Respiratory Rate 18 Blood Pressure 134/82 169/84 H Pulse Oximetry 98 97 Oxygen Delivery Method Room Air 03/17/25 04:11 Temperature Pulse Rate 76 Respiratory Rate 14 Blood Pressure 123/82 Pulse Oximetry 94 Oxygen Delivery Method Room Air MDM - Extremity Injury (Lower) Imaging Data X-ray series left hip with pelvis: Radiologist's Impression: [address] [address] XRay Report Signed Patient: Tyler Hull MR#: [id number] : 1970 Acct:[id number] Age/Sex: 54 / M Date of Service: 03/16/25 Loc: ED Accession Number: [id number] Procedure: XR hip w pel LT 2V Ordering Provider: Delmer Smyth MD PROCEDURE: XR HIP W PEL IF DONE LT 2V INDICATIONS: hip pain TECHNIQUE: AP pelvis with lateral view(s) of the left hip(s). COMPARISON: None. FINDINGS: Bones: No fractures or dislocations. Pelvic ring appears intact. No evidence of avascular necrosis of femoral heads. No suspicious bony lesions. Soft tissues: The visualized bowel gas pattern is normal. No suspicious soft tissue calcifications. IMPRESSION: No acute left hip fracture or dislocation. No evidence of avascular necrosis. Dictated by: Osmany Jasso M.D. on 03/16/2025 at 23:03 Approved by: Osmany Jasso M.D. on 03/16/2025 at 23:03 [facility] Narrative Medical decision making narrative: 54-year-old male with ongoing low back pain problems, awaiting pain specialist and museum specialist follow up appointments, seen here few days ago was given Percocet pain medication and Robaxin muscle relaxant. Subsequently he went to rn intensive care unit, had adjustments and felt better, now with increasing pain. [place] a pop today when rolling over, increasing low back pain radiating to the left hip and groin. We discussed imaging, he declines. IV Dilaudid. Oral Flexeril. Home pack Percocet/APAP. Home pack Flexeril. Prescriptions for both next few days also provided. Recheck advised early this next week with PCP, follow up with pain control specialists as planned. Discharge Plan Departure Patient Disposition: Home Clinical Impression: Left hip pain, Acute left-sided low back pain Activity Restrictions/Additional Instructions: Recurring pain left low back, left hip into groin. Improvement yesterday after rn intensive care unit, then a popping like sensation with increased/recurrence of pain. Trial of higher potency muscle relaxant. Discontinue the Robaxin prescribed from prior ED visit. You had taken Flexeril/cyclobenzaprine in the past with good effect, oral dose given, prescription sent to your pharmacy. X-rays of the left hip with pelvis unrevealing for source of symptoms. We discussed advanced imaging such as CT scan abdomen and pelvis, hold for now. Consider outpatient MRI lumbar spine and/or pelvis if symptoms persist. Refill of oxycodone/acetaminophen, home pack provided, short supply sent to your pharmacy. Follow up with your orthopedist and pain specialists as planned. Return to this/nearest emergency department for any change worsening symptoms or any concerns prior. Prescriptions: New cyclobenzaprine 10 mg tablet 10 mg PO TID Qty: 14 0RF oxycodone-acetaminophen 5-325 mg tablet 1 tab PO Q6H PRN (Reason: pain) Qty: 10 0RF No Action cetirizine 10 mg Tablet 10 mg PO DAILY diclofenac sodium 1 % Gel 4 g TOPICAL QID ranitidine HCl 150 mg Capsule 150 mg PO DAILY azelastine 137 mcg (0.1 %) Aerosol,[place] 1 spray INTRANASAL DAILY lamotrigine 100 mg Tablet 150 mg PO DAILY acetaminophen [Tylenol] 325 mg Capsule 650 mg PO Q4H PRN (Reason: pain) tramadol 50 mg tablet 50 mg PO Q6H PRN (Reason: pain) Qty: 20 0RF oxycodone 5 mg capsule 5 mg PO Q6H PRN (Reason: pain) Qty: 20 0RF aspirin 81 mg tablet,delayed release (DR/EC) 81 mg PO BID Qty: 60 0RF meloxicam 7.5 mg tablet 7.5 mg PO BID PRN (Reason: pain) Qty: 20 0RF lidocaine 5 % adhesive patch,medicated 1 patch topical Q24H PRN (Reason: pain) Qty: 15 0RF Rx Instructions: leave on most painful area for up to 12 hrs diazepam [Valium] 5 mg tablet 5 mg PO TID PRN (Reason: muscle spasm) Qty: 10 0RF methylprednisolone [Medrol (Vazquez)] 4 mg tablets,dose pack See Rx Instructions .ROUTE .COMPLEX Qty: 21 0RF Rx Instructions: for 6 days Referrals: Miscellaneous,Doctor, MD [Primary Care Provider, Medical] Stand Alone Forms: Patient Portal/API
[2025-03-17] MEDS: CYCLOBENZAPRINE 10 MG TABLET PO (02:51)
[2025-03-17] MEDS: ONDANSETRON 4 MG ODT SL (02:51)
[2025-03-17] MEDS: CYCLOBENZAPRINE 10 MG PREPACK 1 BOTTLE MISC (04:02)
[2025-03-17 04:11] VITALS: BP 123/82; PULSE 76; RESP 14; O2SAT 94
== END 2025-03-17 04:12 | disposition home or self-care (01) ==
PROVIDERS: Emergency Provider Emergency Medicine
DX: M25.552 Pain in left hip (principal); M54.2 Cervicalgia; X50.1XXA Overexertion from prolonged static or awkward postures, initial encounter
CPT/HCPCS: 73502; 96372; 99283; J1171